=== PATIENT | female | born 2000 | race Caucasian/White ===

== ENCOUNTER 2024-02-28 09:06 | Emergency (ER) | payer BC ==
[~2024-02-28] VITALS: Ht 167.6 cm; Wt 68.2 kg
[2024-02-28 09:08] VITALS: TEMP 97.8
[2024-02-28 09:37] LABS: BASOPHILS # (AUTO) 0.1 X10'3 (0-0.2); BASOPHILS % (AUTO) 0.4 % (0-1); EOSINOPHILS % (AUTO) 0.3 % (0-6); HEMATOCRIT 46.2 % (35.0-45.0); HEMOGLOBIN 15.9 g/dl (12.0-16.0); LYMPHOCYTES # (AUTO) 1.7 X10'3 (1.1-4.8); LYMPHOCYTES % (AUTO) 13.2 % (21-51); MEAN CORPUSCULAR HEMOGLOBIN 28.4 PG (27.0-31.0); MEAN CORPUSCULAR HGB CONC 34.4 g/dL (33.0-36.5); MEAN CORPUSCULAR VOLUME 82.6 FL (78-98); MEAN PLATELET VOLUME 8.4 FL (7.4-10.4); MONOCYTES # (AUTO) 1.3 X10'3 (0-0.9); MONOCYTES % (AUTO) 10.6 % (2-12); NEUTROPHILS # (AUTO) 9.5 X10'3 (1.8-7.7); NEUTROPHILS % (AUTO) 75.5 % (42-75); PLATELET COUNT 381 X10'3 (140-440); RED BLOOD COUNT 5.59 X10'6 (4.20-5.60); RED CELL DISTRIBUTION WIDTH 13.6 % (11.5-14.5); WHITE BLOOD COUNT 12.6 X10'3 (4.5-11.0)
[2024-02-28 09:55] LABS: ALANINE AMINOTRANSFERASE 20 U/L (12-78); ALBUMIN/GLOBULIN RATIO 0.9 (1.1-1.5); ALKALINE PHOSPHATASE 53 IU/L (46-116); ANION GAP 11 (8-16); ASPARTATE AMINO TRANSFERASE 14 U/L (10-37); BILIRUBIN,TOTAL 0.9 MG/DL (0.1-1.0); BLOOD UREA NITROGEN 6 MG/DL (7-18); BUN/CREATININE RATIO 11.5 (10.0-20.0); CALCIUM 9.3 MG/DL (8.5-10.1); CHLORIDE 95 MMOL/L (99-107); CREATININE 0.52 MG/DL (0.40-0.90); GLUCOSE 90 MG/DL (70-104); POTASSIUM 3.1 MMOL/L (3.5-5.1); SODIUM 135 MMOL/L (135-145); TOTAL CARBON DIOXIDE 28.9 MMOL/L (24-32); TOTAL PROTEIN 8.6 G/DL (6.4-8.2); eCRCL 155 ML/MIN; eGFR > 90 ML/MIN
[2024-02-28] MEDS: diphenhydrAMINE 50 mg/ml inj IV ONE (10:25)
[2024-02-28] MEDS: metoclopramide 5 mg/ml inj IV ONE (10:26)
[2024-02-28] MEDS: normal saline 1000ml 1,000 ML IV ONE (10:26)
[2024-02-28] MEDS ORDERED: METO10TA3 PO (11:27)
[2024-02-28] MEDS ORDERED: DIPH25CA83 PO (11:27)
[2024-02-28 12:02] VITALS: BP 104/71; PULSE 94; RESP 16; O2SAT 99
== END 2024-02-28 12:06 | disposition home or self-care (01) ==
LOC: ER 09:07
DX: O21.0 Mild hyperemesis gravidarum (principal); E87.6 Hypokalemia; Z3A.00 Weeks of gestation of pregnancy not specified; Z79.52 Long term (current) use of systemic steroids
CPT/HCPCS: 36415; 80053; 85025; 96361; 96374; 96375; 99284; J1200; J2765; J7030

== ENCOUNTER 2024-03-27 14:41 | Emergency (ER) | payer BC ==
[~2024-03-27] VITALS: Ht 167.6 cm; Wt 59.1 kg
[~2024-03-27 14:41] MED LIST: DIPH25CA83 PO; METO10TA3 PO
[2024-03-27 14:50] VITALS: TEMP 97.8
[2024-03-27 15:28] LABS: BASOPHILS % (AUTO) 0.3 % (0-1); EOSINOPHILS % (AUTO) 0.2 % (0-6); LYMPHOCYTES # (AUTO) 2.3 X10'3 (1.1-4.8); LYMPHOCYTES % (AUTO) 15.4 % (21-51); MONOCYTES # (AUTO) 2.1 X10'3 (0-0.9); MONOCYTES % (AUTO) 13.8 % (2-12); NEUTROPHILS # (AUTO) 10.4 X10'3 (1.8-7.7); NEUTROPHILS % (AUTO) 70.3 % (42-75); PLATELET COUNT 466 X10'3 (140-440); WHITE BLOOD COUNT 14.8 X10'3 (4.5-11.0)
[2024-03-27 15:48] LABS: ALANINE AMINOTRANSFERASE 9 U/L (12-78); ALBUMIN 3.9 G/DL (3.4-5.0); ALBUMIN/GLOBULIN RATIO 0.8 (1.1-1.5); ALKALINE PHOSPHATASE 49 IU/L (46-116); ANION GAP 15 (8-16); ASPARTATE AMINO TRANSFERASE 19 U/L (10-37); BILIRUBIN,TOTAL 0.9 MG/DL (0.1-1.0); BLOOD UREA NITROGEN 6 MG/DL (7-18); BUN/CREATININE RATIO 8.3 (10.0-20.0); CALCIUM 9.7 MG/DL (8.5-10.1); CHLORIDE 90 MMOL/L (99-107); CREATININE 0.72 MG/DL (0.40-0.90); GLUCOSE 97 MG/DL (70-104); LIPASE 38 U/L (16-77); POTASSIUM 3.4 MMOL/L (3.5-5.1); SODIUM 131 MMOL/L (135-145); TOTAL PROTEIN 8.9 G/DL (6.4-8.2); eCRCL 111 ML/MIN; eGFR > 90 ML/MIN
[2024-03-27] MEDS: normal saline 1000ml 1,000 ML IV ONE (15:50)
[2024-03-27 15:57] LABS: HCG SERUM QL POSITIVE
[2024-03-27] MEDS: metoclopramide 5 mg/ml inj IV ONE ×2 (16:00→18:30)
[2024-03-27] MEDS: diphenhydrAMINE 50 mg/ml inj IV ONE ×2 (16:02→18:30)
[2024-03-27 16:11] LABS: HEMATOCRIT 43.5 % (35.0-45.0); HEMOGLOBIN 15.4 g/dl (12.0-16.0); MEAN CORPUSCULAR HEMOGLOBIN 29.2 PG (27.0-31.0); MEAN CORPUSCULAR HGB CONC 35.4 g/dL (33.0-36.5); MEAN CORPUSCULAR VOLUME 82.3 FL (78-98); RED BLOOD COUNT 5.28 X10'6 (4.20-5.60); RED CELL DISTRIBUTION WIDTH 13.9 % (11.5-14.5)
[2024-03-27] MEDS: dicyclomine 10 MG capsule PO ONE (17:22)
[2024-03-27] MEDS ORDERED: SCOP1PAT11 TOP (17:26)
[2024-03-27] MEDS ORDERED: DIPH25TA62 PO (17:26)
[2024-03-27] MEDS: scopolamine 1MG/72H patch 1 PATCH PATCH.TD.3 TD SCH (17:53)
[2024-03-27 18:43] VITALS: BP 143/94; PULSE 88; RESP 18; O2SAT 98
== END 2024-03-27 18:45 | disposition home or self-care (01) ==
LOC: ER 14:42
DX: O21.0 Mild hyperemesis gravidarum (principal); Z3A.49 Greater than 42 weeks gestation of pregnancy; Z88.8 Allergy status to other drugs, medicaments and biological substances; Z79.899 Other long term (current) drug therapy
CPT/HCPCS: 36415; 80053; 83690; 84703; 85025; 96374; 96375; 96376; 99285; J1200; J2765; J7030